=== PATIENT | female | born 1985 | race African-American/Black ===

== ENCOUNTER 2021-09-27 07:57 | Inpatient (IN) | payer OTHER ==
[~2021-09-27] VITALS: Ht 157.5 cm; Wt 65.8 kg
[2021-09-27 08:32] VITALS: BP 142/90
[2021-09-27] MEDS ORDERED: BUPROPION XL300 MG PO (08:38)
[2021-09-27] MEDS ORDERED: METHIMAZOLE10 MG PO (08:39)
[2021-09-27] MEDS ORDERED: FLEXERIL PO (08:39)
[2021-09-27] MEDS ORDERED: IMITREX 50 MG T50 MG PO (08:40)
[2021-09-27] MEDS ORDERED: INDOMETHACIN SR75 MG PO (08:40)
[2021-09-27] MEDS ORDERED: ATENOLOL 25 MG25 M1 PO (08:40)
[2021-09-27 10:00] LABS: HEMATOCRIT 31.3 % (37.0-47.0); HEMOGLOBIN 10.4 gm/dL (12.0-15.0); MCH 29.9 pg (26.0-34.0); MCHC 33.3 g/dL (28.0-37.0); MCV 89.7 fL (80.0-100.0); MPV 6.9 fl. (7.2-11.1); RBC 3.49 mil/uL (4.20-5.00); RDW-CV 15.7 % (10.5-14.5); WBC 8.6 thou/uL (4.0-11.0)
[2021-09-27 10:10] LABS: CALCIUM 9.3 mg/dL (8.5-10.1); CREATININE 0.5 mg/dL (0.6-1.3); POTASSIUM 3.8 mmol/L (3.5-5.1)
[2021-09-27 10:15] LABS: TOTAL BILIRUBIN 0.4 mg/dL (<0.1-1.0); TOTAL PROTEIN 7.3 g/dL (6.4-8.2)
[2021-09-27 10:17] LABS: URINE BILIRUBIN NEGATIVE (Negative); URINE BLOOD NEGATIVE (Negative); URINE CLARITY CLEAR; URINE COLOR YELLOW; URINE GLUCOSE-RANDOM NEGATIVE (Negative); URINE KETONES NEGATIVE (Negative); URINE LEUKOCYTES-REFLEX NEGATIVE (Negative); URINE NITRITE-REFLEX NEGATIVE (Negative); URINE PROTEIN TRACE (Negative); URINE SPECIFIC GRAVITY 1.025 (1.005-1.030); URINE UROBILINOGEN 0.2 E.U./dl (0.2-1.0)
[2021-09-27 10:31] LABS: CALCIUM 9.4 mg/dL (8.5-10.1)
[2021-09-27 11:22] LABS: AMP/METHAMP Negative (Negative); BARBITURATES Negative (Negative); BENZODIAZEPINES Negative (Negative); COCAINE Negative (Negative); METHADONE Negative (Negative); OPIATES Negative (Negative); PCP Negative (Negative); THC POSITIVE (Negative)
--- NOTE | 2021-09-27 12:00 | EKG ---
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: ALICE : 1985 Requested By: Brando Horn Order Number: [id number] MD: Chava Cortez Measurements Intervals [place] Rate: 120 P: 57 [place]: 126 QRS: 37 QRSD: 85 T: 34 QT: 344 QTc: 486 Interpretive Statements Sinus tachycardia Left atrial enlargement Borderline prolonged QT interval No previous ECG available for comparison Electronically Signed On 09-27-2021 12:00:43 [employer]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
[2021-09-27 15:30] VITALS: BP 128/69
[2021-09-27 19:41] LABS: INFLUENZA A ANTIGEN Negative (Negative); INFLUENZA B ANTIGEN Negative (Negative)
[2021-09-27 19:56] VITALS: BP 154/83
[2021-09-28 00:05] VITALS: BP 160/82
[2021-09-28 03:34] LABS: ABSOLUTE LYMPHOCYTES 0.9 thou/uL (0.8-5.3); ABSOLUTE MONOCYTES 0.3 thou/uL (0.0-1.2); ABSOLUTE NEUTROPHILS 6.5 thou/uL (1.6-8.1); BASOPHILS 0.1 %; EOSINOPHILS 0.2 %; HEMATOCRIT 28.9 % (37.0-47.0); HEMOGLOBIN 9.5 gm/dL (12.0-15.0); LYMPHOCYTES 11.8 %; MCH 29.6 pg (26.0-34.0); MCV 89.7 fL (80.0-100.0); MONOCYTES 4.4 %; MPV 6.8 fl. (7.2-11.1); NUCLEATED RBCS 0 /100WBC; PLATELET COUNT* 288 thou/uL (150-400); POLYS 83.5 %; RBC 3.23 mil/uL (4.20-5.00); RDW-CV 15.8 % (10.5-14.5); WBC 7.8 thou/uL (4.0-11.0)
[2021-09-28 03:59] LABS: CALCIUM 9.1 mg/dL (8.5-10.1); CREATININE 0.5 mg/dL (0.6-1.3); POTASSIUM 4.3 mmol/L (3.5-5.1)
[2021-09-28 04:00] VITALS: BP 147/83
[2021-09-28 08:00] VITALS: BP 147/72
[2021-09-28 12:00] VITALS: BP 145/87
[2021-09-28] MEDS ORDERED: METHIMAZOLE10 MG PO (16:13)
[2021-09-28] MEDS ORDERED: METOPROLOL TART25 MG PO (16:13)
[2021-09-28] MEDS ORDERED: PREDNISONE 10 M10 MG PO (16:15)
[2021-09-28] MEDS ORDERED: PROTONIX40 M4 PO (16:15)
[2021-09-28 16:25] VITALS: BP 145/87
[2021-09-28 16:35] VITALS: BP 155/78
[2021-09-30 11:08] LABS: ANTI-DNA SCREEN 2 IU/mL (0-9); ANTI-RNP 0.3 AI (0.0-0.9); ANTI-SSA <0.2 AI (0.0-0.9); ANTIJO-I AB <0.2 AI (0.0-0.9)
== END 2021-09-28 16:35 | disposition home or self-care (01) | DRG 645 ==
LOC: M.ERS 07:57 → M.TBA-ER 11:18
PROVIDERS: Emergency Medicine Emergency Medical Services; ADMIT Internal Medicine; ATTEND Internal Medicine
DX: E05.00 Thyrotoxicosis with diffuse goiter without thyrotoxic crisis or storm (principal); I16.0 Hypertensive urgency; Z20.822 Contact with and (suspected) exposure to COVID-19; Z79.899 Other long term (current) drug therapy